=== PATIENT | female | born 1995 | race Caucasian/White ===

== ENCOUNTER 2018-12-02 08:05 | Emergency (ER) | payer BC ==
--- OUTSIDE RECORDS SUMMARY | 2018-12-02 08:07 | XMS REPORT ---
:1995 [facility] Address [address] [place] [address] Dr. Barone [address] [place] [id number] Care Team Providers Name Role Phone Unavailable Unavailable Unavailable Problems This patient has no known problems. Allergies, Adverse Reactions, Alerts This patient has no known allergies or adverse reactions. Medications This patient has no known medications.
--- OUTSIDE RECORDS SUMMARY | 2018-12-02 08:07 | XMS REPORT ---
:1995 Author Organization [employer] Care Team Providers Name Role Phone Kristel Kilgore Provider Role Unavailable Allergies, Adverse Reactions, Alerts Substance Reaction Event Type Latex hives Drug Allergy Problems Problem Type Condition Code Onset Dates Condition Status Problem Migraine G43.909 Active Assessment Anxiety F41.9 Active Problem Anxiety F41.9 Active Assessment Migraine G43.909 Active Assessment Dizziness R42 Active Medications Medication Code Code Instructions Start End Status Dosage System Date Date Norethindrone [facility] [id number] 1-20 MG-MCG Active TAKE 1 Acet-Ethinyl Est Oral TABLET(S) EVERY DAY BY ORAL ROUTE DIRECTED FOR 21 DAYS. Results Name Result Date Reference Range Unit Abnormality Flag COMPREHENSIVE METABOLIC PANEL(CMP) ----ALBUMIN/GLOBULI 1.6 [id number] 1.0-2.5 (calc) N N RATIO ----GLOBULIN 2.6 [id number] 1.9-3.7 g/dL N (calc) ----ALKALINE 57 [id number] 33-115 U/L N PHOSPHATASE ----BILIRUBIN, 0.5 [id number] 0.2-1.2 mg/dL N TOTAL ----CHLORIDE 105 [id number] 98-110 mmol/L N ----ALT 30 [id number] 6-29 U/L H ----POTASSIUM 4.3 [id number] 3.5-5.3 mmol/L N ----AST 17 [id number] 10-30 U/L N ----SODIUM 138 [id number] 135-146 mmol/L N ----BUN/CREATININE NOT APPLICABLE [id number] 6-22 (calc) RATIO ----eGFR 149 [id number] > OR=60 mL/min/1.7 N [place] 3m2 ----CALCIUM 9.4 [id number] 8.6-10.2 mg/dL N ----CARBON DIOXIDE 27 [id number] 20-31 mmol/L N ----ALBUMIN 4.2 [id number] 3.6-5.1 g/dL N ----PROTEIN, TOTAL 6.8 [id number] 6.1-8.1 g/dL N ----GLUCOSE 89 [id number] 65-99 mg/dL N ----UREA NITROGEN 9 [id number] 7-25 mg/dL N (BUN) ----CREATININE 0.62 [id number] 0.50-1.10 mg/dL N ----eGFR NON-AFR. 129 [id number] > OR=60 mL/min/1.7 N [place] 3m2 TSH ----TSH 1.39 [id number] mIU/L N Summary Purpose eClinicalWorks Submission
--- OUTSIDE RECORDS SUMMARY | 2018-12-02 08:07 | XMS REPORT ---
:1995 Author Organization [employer] Care Team Providers Name Role Phone Kristel Kilgore Provider Role Unavailable Allergies No Known Allergies Problems Problem Type Condition Code Onset Dates Condition Status Problem Migraine G43.909 Active Problem Anxiety F41.9 Active Medications No Known Medications Results No Known Results Summary Purpose [employer]ClinicalWorks Submission
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
[2018-12-02] MEDS ORDERED: IBUPROFEN 200 MG TAB PO ONE (08:37)
[2018-12-02] MEDS ORDERED: CYCLOBENZAPRINE 10 MG TAB ONE (08:37)
[2018-12-02] MEDS ORDERED: IBUPROFEN 400 MG TAB ONE (08:37)
[2018-12-02 08:47] VITALS: BP 137/83; TEMP 97.9; O2SAT 100
== END 2018-12-02 08:41 | disposition home or self-care (01) ==
LOC: ER 08:05
DX: M62.838 Other muscle spasm (principal); M62.830 Muscle spasm of back; V49.49XA Driver injured in collision with other motor vehicles in traffic accident, initial encounter
CPT/HCPCS: 99283